=== PATIENT | female | born 1960 | race Caucasian/White ===

== ENCOUNTER 2020-01-18 10:23 | Day surgery (SDC) | payer MEDICARE, SELFPAY ==
--- NOTE | 2020-01-17 12:56 | HP.PCM_ITS ---
History and Physical Date of Admission: 01/18/20 Kya Garibay 1960 ? ? REFERRING PHYSICIAN: Chrissy Lawrence ([facility]), OCT* ? CHIEF COMPLAINT: Consult ? HPI: The patient is a 59 year old female who presents with newly diagnosed right breast DCIS. She denies palpable breast masses. She denies nipple discharge. She denies breast pain. Her mother had bilateral breast cancer and her father's father had breast cancer. She notes no ovarian cancer known in family. ? Mammograms right 12/28/2019 There is a 1 cm oval mass with a circumscribed margin and pleomorphic calcifications in the right breast at 11 o'clock anterior depth. No other significant masses or calcifications are seen in the breast. ? US right breast 12/28/2019 There is 1.1 cm x 0.7 cm x 0.4 cm lobulated lesion with a circumscribed margin in the right breast at 11 o'clock posterior depth 1 cm from the nipple. ?This lobulated lesion is of mixed echogenicity. ?This correlates with mammography findings. IMPRESSION: SUSPICIOUS FINDING - BIOPSY SHOULD BE CONSIDERED The 1.1 cm x 0.7 cm x 0.4 cm lobulated lesion in the right breast is consistent with a complex cyst and is suspicious of malignancy. ?An ultrasound guided biopsy is recommended. ? Kya is s/p US guided right breast biopsy done on 01/10/2020. She denies any problems from the biopsy. She denies fevers. Pathology reveals - FINAL DIAGNOSIS Right breast, needle core biopsy - Ductal carcinoma in situ, intermediate-high grade, cribriform, micropapillary, papillary types. I have explained the above pathology to the patient. ? PAST MEDICAL HISTORY ? Acquired hypothyroidism 05/24/2015 ? Hx of ? KARLENE positive 11/08/2014 ? Arthritis 11/06/2014 ? Marked in knees and ankles. ? CKD (chronic kidney disease) stage 3, GFR 30-59 ml/min ([facility]) 06/11/2018 ? Seeing Nephrology [facility] ? 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 Diabetic eye exam (HCC) 12/15/2013 ? Last exam: 12/31/2018 No Retinopathy ? Dyslipidemia 05/17/2015 ? elevated Trig's ? Elevated LFTs 09/09/2014 ? Elevated liver enzymes ? ? Endometriosis ? ? Essential hypertension 05/17/2015 ? Hyperlipidemia ? ? Morbid obesity due to excess calories (HCC) 05/24/2015 ? Nonalcoholic steatohepatitis (MEJIA) 03/30/2018 ? Punctate keratitis of both eyes 11/19/2017 ? Symptomatic menopausal or female climacteric states 09/07/2013 ? Type 2 diabetes mellitus without complication (HCC) 05/17/2015 ? Type 2 diabetes mellitus without retinopathy (HCC) 11/19/2017 ? Vitreous floaters of both eyes 11/19/2017 ? PAST SURGICAL HISTORY ? COLONOSCOP W/ OR W/O BRSH SPEC ? 09/03/2013 ? Colonoscopy ? EXCISION OF NAIL FOLD, TOE ? 03/2018 ? excision of left big toe nail ? HYSTERECTOMY HX ? 1998 ? Still has cervix ? PAST SURGICAL HISTORY OF ? 2000 ? Bilateral carpal tunnel ? PAST SURGICAL HISTORY OF ? ? ? cyst removed from head ? PRQ CARDIAC STENT W/ANGIO 1 VSL ? 01/2019 ? REMOVAL OF OVARY/TUBE(S) ? 1998 ? ? Current Outpatient Medications ? insulin glargine (BASAGLAR KWIKPEN U-100 INSULIN) 100 unit/mL (3 mL) Inject 50 Units subcutaneously every morning. ? dulaglutide (TRULICITY) 1.5 mg/0.5 mL Inject 1.5 mg subcutaneously one time a week. ? buPROPion XL (WELLBUTRIN XL) 150 mg 24 hr tablet Take 1 tablet by mouth once daily. ? metHIMazole (TAPAZOLE) 5 mg tablet Take 1 tablet by mouth once daily. ? atorvastatin (LIPITOR) 40 mg tablet Take 1 tablet by mouth once daily. ? metFORMIN (GLUCOPHAGE) 1,000 mg tablet Take 1 tablet by mouth daily with breakfast. ? losartan (COZAAR) 25 mg tablet Take 1 tablet by mouth twice daily. ? hydroCHLOROthiazide (HYDRODIURIL, ESIDRIX) 12.5 mg tablet Take 1 tablet by mouth once daily. ? metoprolol tartrate, short acting, (LOPRESSOR) 25 mg tablet Take 1 tablet by mouth twice daily. ? gabapentin (NEURONTIN) 100 mg capsule TAKE 1 CAPSULE BY MOUTH ONCE DAILY AT BEDTIME FOR 30 DA ? clopidogrel (PLAVIX) 75 mg tablet Take 1 tablet by mouth once daily. ? citalopram (CELEXA) 40 mg tablet Take 1 tablet by mouth once daily. ? POTASSIUM CHLORATE, BULK, MISC 1 tablet. ? nitroglycerin sublingual (NITROQUICK) 0.4 mg SL tablet Dissolve 1 tablet under the tongue every 5 minutes as needed for Chest Pain. ? magnesium oxide (MAG-OX) 400 mg (241.3 mg magnesium) tablet Take 1 tablet by mouth once daily. ? cholecalciferol (VITAMIN D3) 1,000 unit tab tablet Take 1 tablet by mouth twice daily. ? nystatin (NYSTOP) powder Apply 1 application to affected area four times daily. (Patient taking differently: Apply 1 application to affected area four times daily as needed. ? insulin needles, DISPOSABLE, 31 gauge x 516 ndle Use new needle with each injection twice a day ? therapeutic multivitamin (THERA VITAMIN) tablet Take 1 tablet by mouth once daily. ? COMPOUNDED PRESCRIPTION Magnesium 250 mg twice daily ? Vsslpkbhkql-Kobvbhgje-Sym C-Mn (GLUCOSAMINE CHONDROITIN MAXSTR) 500-400 mg cap Take 1 capsule by mouth twice daily. ? Alpha-3 Fatty Acids (FISH OIL) 500 mg cap Take 2 capsules by mouth twice daily. ? Aspirin 81 mg tab Take 1 tablet by mouth once daily. Take with food. ? ? ALLERGIES: Lisinopril ? PERSONAL HISTORY: Tobacco Use ? Smoking status: Former Smoker ? ? Years: 6.00 ? ? Types: Cigarettes ? ? Last attempt to quit: 02/25/1999 ? ? Years since quittin.8 ? Smokeless tobacco: Never Used ? Tobacco comment: socially 2 packs month Substance Use Topics ? Alcohol use: Not Currently ? ? Frequency: Never ? ? Binge frequency: Never ? Drug use: Never ? FAMILY HISTORY ? Coronary Artery Disease Father 55 ? ? Hypertension Father ? ? Lipids Father ? ? Heart Father ? ? [place] ? Breast Cancer Mother 54 ? 1998, 2017 ? Diabetes Mother ? ? Thyroid Mother ? ? Goiter removed ? Leukemia Mother ? ? in remission ? other (aneurysm) Mother 55 ? Thoracic aneurysm AVR ? No Known Problems Brother ? ? No Known Problems Brother ? ? Coronary Artery Disease Brother 55 ? coronary stent ? Ischemic Heart Disease Brother ? ? Colon Cancer Paternal Aunt ? ? 50's ? Alzheimer's Disease Maternal Grandmother ? ? Coronary Artery Disease Maternal Grandmother ? ? 60's ? Diabetes Maternal Grandmother ? ? Stroke Maternal Grandmother ? ? Stroke Paternal Grandmother ? ? Diabetes Paternal Grandfather ? ? No Known Problems Son ? ? Adopted ? ? The review of systems data was entered by the nurse and reviewed by me ?Nursing Notes: Chrissy Ruiz RN 01/03/2020 9:58 AM Signed REVIEW OF SYSTEMS: General: The patient denies fatigue, denies weight loss, denies weight gain, notes feeling hot, and denies feelings of cold. Eyes: The patient denies glaucoma, denies eye injury/surgery, wears glasses or contacts. Ear/Nose/Throat: The patient denies allergies, denies hayfever, denies ear infections, and denies bloody noses. Cardiovascular: The patient denies chest pain, notes heart disease, notes high blood pressure,notes cardiac stent, denies prior heart attack, denies irregular heart beat, notes high cholesterol, denies poor circulation, denies heart failure, other cardiac issues, denies claudication, denies cold feet, denies peripheral arterial stent. Respiratory: has shortness of breath with exertion, denies tuberculosis, denies pneumonia, denies frequent cough, denies pulmonary embolism, denies shortness of breath, and denies coughing up blood. Gastrointestinal: The patient denies difficulty swallowing, denies acid reflux, denies ulcers, denies vomiting, denies jaundice/hepatitis, denies gallbladder problems, denies black or tarry stools, denies hemorrhoids, denies bleeding from rectum, denies diverticulitis, denies constipation, denies diarrhea, denies loss of stool control, and denies hernias. Kidney/Bladder: The patient denies kidney stones, denies urine infections, and denies bloody urine. Skin: The patient denies a history of skin cancer, denies bleeding/changing moles, and denies a history of skin rash. Neurologic: The patient denies a history of epilepsy/convulsions, denies headaches, denies head/spinal injuries, and denies stroke/TIA. Psychiatric: The patient denies psychiatric medications, notes depression, and denies voices, denies substance abuse. Endocrine: The patient notes thyroid disorders, notes diabetes, and denies hormonal problems. Hematologic: The patient denies a history of bruising, denies bleeding, and denies anemia, denies blood clots. Infections: The patient notes a history of measles and mumps, denies rheumatic fever, and denies sexually transmitted diseases. Musculoskeletal: The patient denies back pain/injury, denies back problems, denies sciatica, notes knee/foot trouble, notes arthritis, or denies gout. Obstetrical: menarche onset at age 14, G0, hysterectomy 39, HRT denies, BCP use from age 20 for <1y When was patient's last Mammogram screening? 12/16/2019 Last Colonoscopy: 09/03/2013 Chrissy Ruiz RN ? PHYSICAL EXAMINATION: General: The patient is 59 year old female, well nourished, well hydrated in no acute distress. The patient is oriented to time, place, and person. VITALS: Blood pressure 130/90, pulse 79, temperature (!) 35.8 ?C (96.5 ?F), temperature source Temporal Artery, weight 132.5 kg (292 lb), Ht: 5'6 SpO2 96 %. Body mass index is 47.13 kg/m?. Head ? Normocephalic. EOM intact with sclera clear and no icterus noted. Wearing glasses. Mouth with mucus membranes moist. Neck - supple with no jugular venous distention noted. Trachea is midline. No carotid bruits noted. No thyroid enlargement or thyroid nodules detected. No masses noted. Chest/breast ? no asymmetry of breasts noted, no suspicious skin lesions noted, no nipple discharge and both nipples everted, no breast masses noted Lungs ? clear to auscultation. Normal breath sounds. No rales/rhonchi/wheezing noted. No labored breathing noted, such as retractions. No cough heard. Heart ? normal S1 and S2 auscultated. No rubs/clicks/murmurs noted. Regular rate. Abdomen ? soft and benign. Normal bowel sounds No abdominal bruits noted. Difficult to determine if any masses or organomegaly due to body habitus. Extremities ? no calf tenderness noted. No pitting edema noted. Skin ? multiple skin tags of right axillary area, normal skin integrity. Lymph ? no cervical adenopathy detected, no supraclavicular adenopathy detected, no axillary adenopathy detected Neurological ? gait normal, no focal deficits noted Psych ? calm and appropriate RADIOLOGIC STUDIES: As Noted ? ? IMPRESSION: right breast DCIS ? PLAN: I have discussed the above with the patient. I have explained the pathophysiology of DCIS in layman's terms. I have recommended right breast lumpectomy via wire localization followed by radiation therapy. (the alternative for surgical options is mastectomy and the patient is not interested it this) I have explained the risks/benefits of the procedure, including but not limited to: infection, bleeding, injury to any blood vessels/nerves, scar tissue, cosmetic deformity, requiring further surgery, missing the marker clip, complications of anesthesia, etc - she understands. She agrees to proceed. I have answered all questions to the patient?s satisfaction and the patient has no further questions. ? . Diagnoses: (R92.8) Abnormal ultrasound of breast (primary encounter diagnosis) (R92.8) Abnormal mammogram (Z80.3) Family history of breast cancer (E66.01) Morbid obesity (HCC) Return to Clinic: The patient is instructed to follow-up with me after the procedure
[2020-01-18] VITALS (15 sets, daily range): BP systolic 103–137; BP diastolic 56–97; PULSE 54–67; RESP 16–18; TEMP 36.1–37.2; O2SAT 92–98; BMI 47.0
--- NOTE | 2020-01-18 10:29 | BI_ITS ---
SURGICAL BREAST SPECIMEN RADIOGRAPH CLINICAL: Document presence of tissue clip marker in biopsy specimen. FINDINGS: Specimen shows presence of tissue clip marker. Electronically Signed: Alexi Fink, at 14:14 EDT , Service support , BI/Breast Biopsy Specimen
[2020-01-18] MEDS: Lactated Ringers 1,000 ML 75 ML IV ×2 (11:04→13:38)
[2020-01-18 11:16] LABS: Bedside Glucose 163 mg/dL (70-110)
[2020-01-18] MEDS: Bupiv/Epi 0.25% 30 ML Vial (11:44)
--- NOTE | 2020-01-18 11:44 | DCINST_ITS ---
Discharge Diet: No Restrictions Discharge Activity: Return to Normal Activity, May not drive while taking narcotic pain medications. Additional Activity Instructions:: Wear supportive bra during day (to prevent the weight of her your breast from pulling at the surgical site) Call your doctor if your incision/area has: Continuous Slow Oozing, Foul Smelling Discharge Call your doctor if you observe: Fever of 101 or Higher Additional Dressing/Incision Instructions:: Leave dressing in place. May get wet in shower. Do not soak - no tub baths/swimming. May apply ice to area for comfort as tolerated Allergies/Adverse Reactions: Allergies lisinopril Allergy (Verified 01/18/20 10:46) Swelling Medications to take at Discharge Aspirin [Aspirin, Baby] 81 mg PO DAILY@0800 #30 tab.chew 07/26/13 Atorvastatin Calcium [Lipitor] 40 mg PO QHS #30 tablet 07/26/13 Bupropion HCl [Wellbutrin Xl] 150 mg PO DAILY 01/17/20 Cholecalciferol (VIT D3) [Vitamin D] 1,000 unit PO DAILY 01/17/20 Citalopram [Celexa] 40 mg PO DAILY 01/17/20 Clopidogrel Bisulfate [Plavix] 75 mg PO DAILY 01/17/20 Dulaglutide [Trulicity] 1.5 mg SQ SA 01/17/20 Gabapentin [Neurontin] 100 mg PO DAILY 01/17/20 Glucosamine HCl 1,000 mg PO DAILY 01/17/20 Insulin Glargine,Hum.rec.anlog [Basaglar Kwikpen U-100] 50 unit SQ DAILY 01/17/20 Losartan Potassium [Cozaar] 25 mg PO BID 01/17/20 Magnesium 250 mg PO DAILY 01/17/20 Methimazole [Tapazole] 5 mg PO QHS 01/17/20 Metoprolol Tartrate [Lopressor (Beta Delfin)] 25 mg PO BID 01/17/20 Multivitamin with Minerals [Multiple Vitamin] 1 ea PO DAILY 01/17/20 [place]-3/Dha/Epa/Fish Oil [[place] 3 500 Softgel] 2 ea PO BID 01/17/20 hydroCHLOROthiazide [Hydrochlorothiazide] 12.5 mg PO DAILY 01/17/20 metFORMIN HCl [Glucophage] 1,000 mg PO DAILY 01/17/20 Primary Care Physician: Mervin Gao MD [Primary Care Provider] - Please Follow Up With: Germania Palacios MD - - please call if any worsening signs/symptoms When: to be seen by Inocencia Padilla PA-C, next week
--- NOTE | 2020-01-18 11:47 | PCM.OPRPT ---
Report of Operation Date of Procedure: 01/18/20 Pre-Operative Diagnosis: right breast DCIS Post-Operative Diagnosis: same Surgery/Procedure Performed:: right breast lumpectomy via wire localization Description of Surgical Findings:: centrally located - upper outer quadrant lesion graduate teacher education: Eusebio Lindsey Type of Anesthesia:: General Anesthesiologist: Magdaleno Jett Specimen's removed: right breast lumpectomy Estimated Blood Loss (mL): < 5ml Fluids Replaced: 900 ml RL Description of Procedure: After informed consent was given, the patient was brought into the Breast Stereotactic Radiology suite. Appropriate time out protocol was followed. She was then placed in the prone position on the [place] stereotactic table. The patient?s right breast was placed in the opening at the head of the table. A single pass soil stabilizer operator compression mammogram was then obtained in the CC view. The marker clip that was previously placed was identified. Stereo pictures of the lesion were then taken for XYZ coordinates. The Kopans needle was then positioned where it would be entering into the patient?s breast. The skin at this site was then cleansed with a surgical skin preparation. The skin and subcutaneous tissues at this site were then infiltrated with 1% xylocaine. The Kopans needle was then positioned into the patient?s breast at the proper coordinates of depth. A single pass soil stabilizer operator film was obtained which revealed the wire in proper position. The patient was then placed in the supine position and the wire was taped into place. A unilateral mammogram in the CC and MLO view were then taken for use in the OR. The patient tolerated this portion of the procedure well and was brought to the AC awaiting surgery in the OR. The patient was then brought to the Operating Room. Appropriate time out protocol was followed. She was then placed on the operating table in the supine position. A wire had already been placed in the stereotactic biopsy room in the radiology department as described above. The right breast with the wire in placed was then prepped with a sterile surgical skin preparation and sterile surgical drapes were placed. The skin and subcutaneous tissues at the site of the breast lesion was then infiltrated with 1% xylocaine with epinephrine. A transverse curvilinear skin incision was then made with a 15 blade scalpel in the upper outer quadrant of the patient's right breast. It was carried down through to the subcutaneous tissues. Hemostasis was controlled with electrocautery. The wire was then palpated out. The breast tissue surrounding the wire was then carefully palpated out and from the surrounding tissues using electrocautery. The breast tissue, once from the breast, was then forwarded to the radiology department. A specimen mammogram revealed that the marker clip was within the specimen. I reviewed this personally, thus knowing to proceed with closure. The breast tissue was then forwarded to pathology for analysis. Its margins were appropriately marked with suture. Pathology review could not determine margins. Therefore the specimen was placed in formalin for future review. The wound cavity was carefully examined. No further suspicious tissue was palpated or visualized. Hemostasis was carefully controlled with electrocautery. The subdermal tissues were then approximated with vicryl suture. The incision was then reapproximated close using running monocryl suture. Cavilon and steristrips were then placed to reinforce the skin closure. A sterile dressing was then applied. The patient was then brought to the Recovery Room in stable condition. - Complications none noted - Admit VTE Documentation VTE Present on Admission: Yes VTE Mechan Device Prophylaxis: SCD's
--- NOTE | 2020-01-18 12:45 | BRBX_PTH ---
PATIENT: KB GREENE LOC: [facility] U#:[id number] AGE/SX: 59/F ROOM: RE01/18/[address]: Dr. Germania Palacios MD : 1960 BED: DIS: 01/18/2020 SPEC #: [id number] RECD: 01/18/20 12:50 STATUS: LELO ANGÉLICA #: [id number] EMILY: 01/18/20 12:[address]: Germania Palacios DEPT: SURGICAL PATHOLOGY RECD BY: Alivia Contreras ENTERED: 01/18/20 13:22 SP TYPE: BREAST BX OTHR DR: Dr. Mervin Gao MD Tissues: Right breast, NOS Procedures: Surgery Specimen Level V HEADER OPERATION: Right breast lumpectomy, NL PRE-OP DIAGNOSIS: Right breast DCIS TISSUE SUBMITTED: Right breast tissue, two short sutures - deep, one long - lateral, one short - superior, two short white - inferior MICROSCOPIC DIAGNOSIS Right breast, lumpectomy: Ductal carcinoma in situ. Focal intraductal hyperplasia without atypia. Fibrocystic change. See cancer checklist below. AM:akila 01/21/20 COMMENT DUCTAL CARCINOMA IN SITU SUMMARY: Procedure - Lumpectomy Specimen - partial breast Laterality - right breast Size (extent of DCIS): Estimated size (extent) - 2.5 x 2 x 2 mm Number of blocks - 2 out of 12 blocks Architectural pattern - papillary, micropapillary Nuclear grade - 3/3 Necrosis - minimal Margins - uninvolved by in situ carcinoma Distance from closest (anterior) margin - greater than 10 mm Regional lymph nodes - not submitted Microcalcifications - not identified Additional Pathologic Findings - intraductal hyperplasia without atypia, fibrocystic change and changes of previous biopsy Ancillary Studies from previous specimen ([id number] from [facility]): ER - positive (>95%, strong intensity) Pathologic Staging: pTis(DCIS) Nx Mx The above summary is in compliance with [employer] (CAP) Cancer Protocols Checklist and [place] [employer] on Cancer (AJCC), Staging Manual, 8th Ed. Case has been reviewed in consultation with Dr. Abbott who concurs with the above diagnosis. IDC:SJ MICROSCOPIC DESCRIPTION Slides are reviewed. GROSS DESCRIPTION Received fresh for frozen section diagnosis labeled with the patient's name is a specimen designated right breast tissue. The specimen consists of a piece of fibroadipose tissue measuring 6.5 x 7 x 3.5?cm.??Needle localization wire is noted outside the specimen. The specimen is inked as follows: anterior - yellow, posterior - black, superior - blue, inferior - green, medial - red and lateral - orange. Serial sections reveal harris-yellow adipose cut surfaces without any well-defined mass lesion. This information is conveyed to the surgeon intraoperatively. No frozen section is done. Sections reveal a small biopsy cavity filled with gel material. Business Process Lead sections are submitted in 12 cassettes as follows: 1 - perpendicular margin, 3-6 - biopsy cavity with surrounding area, 7-12 - graphic art sales representative sections adjacent to an area from the biopsy cavity. Sections will be submitted after additional fixation. / LEONEL:akila 01/20/20 TC:0 CPT: 15326
--- NOTE | 2020-01-18 13:26 | EKG12_ITS ---
Test Reason : ARRYTHMIA Blood Pressure : / mmHG Vent. Rate : 063 BPM Atrial Rate : 063 BPM P-R Int : 160 ms QRS Dur : 078 ms QT Int : 470 ms P-R-T Axes : -12 004 030 degrees QTc Int : 480 ms Normal sinus rhythm Low voltage QRS Prolonged QT Abnormal ECG When compared with ECG of 25-JUL-2013 05:36, No significant change was found Confirmed by HODAN WASHINGTON, MARLEN ([id number]), electronic news gathering editor PORTER BLAIR ([id number]) on 01/21/2020 9:19:48 AM Referred By: Germania Palacios Confirmed By:SHONA PETTIT MD
[2020-01-18 14:16] LABS: Bedside Glucose 131 mg/dL (70-110)
[2020-01-18] MEDS: HYDROcodone Bitartrate/Apap 5/325 Tablet PO (17:42)
== END 2020-01-18 18:54 | disposition home or self-care (01) ==
LOC: SDC 10:25 → AC 10:27
PROVIDERS: Anesthesiology; PCP Family Medicine; Referring Provider Surgery; Visit Provider Surgery
PROC: (CPT 19301; principal; 2020-01-18 12:30)
DX: D05.11 Intraductal carcinoma in situ of right breast (principal); E78.5 Hyperlipidemia, unspecified; E11.22 Type 2 diabetes mellitus with diabetic chronic kidney disease; N18.3 Chronic kidney disease, stage 3 (moderate); I25.10 Atherosclerotic heart disease of native coronary artery without angina pectoris; Z79.899 Other long term (current) drug therapy; Z79.84 Long term (current) use of oral hypoglycemic drugs; Z79.02 Long term (current) use of antithrombotics/antiplatelets; Z11.59 Encounter for screening for other viral diseases; I12.9 Hypertensive chronic kidney disease with stage 1 through stage 4 chronic kidney disease, or unspecified chronic kidney disease; K75.81 Nonalcoholic steatohepatitis (NASH); E66.01 Morbid (severe) obesity due to excess calories; Z68.42 Body mass index [BMI] 45.0-49.9, adult
CPT/HCPCS: 00400; 19301; 19281; 36415; 76098; 82962; 84484; 87635; 88305; 88307; 93005; G2023; J7120; A4216; J2405; J3490; Q9968; U0003